=== PATIENT | female | born 1990 | race Caucasian/White ===

== ENCOUNTER 2017-06-23 15:36 | Emergency (ER) | payer SELFPAY ==
[~2017-06-23] VITALS: Ht 154.9 cm; Wt 57.2 kg
[2017-06-23 15:37] VITALS: BP 127/70; PULSE 91; RESP 14; TEMP 99.2; O2SAT 97
--- NOTE | 2017-06-23 17:23 | PD ---
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 She reports that she had a routine gynecologic examination today and she was told that there was a tampon in her vagina. She was told by the examiner that they did not have the correct "tools" to remove the tampon and therefore she was referred here for tampon removal. She is asymptomatic. Symptoms are aggravated by the discovery of a tampon with no alleviating factors. She has no other complaints at this time. PFSH Past Medical History ?: Not LMP: 05/24/17 Social History Alcohol Use: Yes Tobacco Use: No Allergies-Medications (Allergen,Severity, Reaction): Coded Allergies: No Known Allergies (Unverified , 06/23/17) Review of Systems General / Constitutional: No: Fever, Chills Gastrointestinal: No: Nausea, Vomiting, Abdominal Pain Genitourinary: Positive: Other (Positive for foreign body but denies foreign body sensation) Physical Exam Narrative GENERAL: Well-developed well-nourished female in no acute distress SKIN: Warm and dry. HEAD: Atraumatic. Normocephalic. EYES: Pupils equal and round. No scleral icterus. No injection or drainage. ENT: No nasal bleeding or discharge. Mucous membranes pink and moist. NECK: Trachea midline. No JVD. CARDIOVASCULAR: Regular rate and rhythm. No murmur appreciated. RESPIRATORY: No accessory muscle use. Clear to auscultation. Breath sounds equal bilaterally. GASTROINTESTINAL: Abdomen soft, non-tender, nondistended. Hepatic and splenic margins not palpable. Pelvic examination the presence of a female nurse: There is an old appearing tampon which was easily removed with forceps. There is some foul-smelling yellow discharge behind the tampon which was sent for wet prep and GC probe. Data Data Last Documented VS Vital Signs Date Time Temp Pulse Resp B/P (MAP) Pulse Ox O2 Delivery O2 Flow Rate FiO2 06/23/17 15:37 99.2 91 14 127/70 (89) 97 Orders Orders Gc And Chlamydia Pcr (06/23/17 17:34) Wet Prep Profile (06/23/17 17:34) Labs Laboratory Tests Test 06/23/17 16:00 Clue Cells (Wet Prep) NONE SEEN Vaginal Trichomonas (Wet Prep) NONE SEEN Vaginal Yeast (Wet Prep) NONE SEEN MDM Medical Decision Making Medical Screen Exam Complete: Yes Emergency Medical Condition: Yes Medical Record Reviewed: Yes Differential Diagnosis Foreign body removal, bacterial vaginosis, trichomoniasis, toxic shock syndrome Narrative Course The tampon was easily removed. Because of the findings GC probe and wet prep were sent. The patient is only sexually active with one long-term partner and does not feel that chlamydia or gonorrhea are possibilities and would prefer to defer treatment which seems reasonable. One prep is negative and most likely the discharge is secondary to the retained foreign body. The patient is stable for discharge. Diagnosis Primary Impression: Hx of retained foreign body fully removed Med/Other Pt SpecificInfo: No Change to Meds Disposition: 01 DISCHARGE HOME Condition: Stable Zac Patrick Jun 23, 2017 17:23
== END 2017-06-23 18:55 | disposition home or self-care (01) ==
LOC: NEPK 15:36
DX: T19.2XXA Foreign body in vulva and vagina, initial encounter (principal)
CPT/HCPCS: 87210; 87491; 87591; 99283